=== PATIENT | female | born 1980 | race African-American/Black ===

== ENCOUNTER 2017-12-18 14:24 | Emergency (ER) | payer BC ==
[~2017-12-18] VITALS: Ht 162.6 cm; Wt 59.0 kg
--- NOTE | ~2017-12-18 | EKG ---
[place] [address] [facility] [place] [address] ELECTROCARDIOGRAM REPORT Name: THURMANMIKAEL Room #: JOSE Rogers#: [id number] Admission: 12/18/17 Attend Phys: Discharge: 12/18/17 Date of : 76 Report #: [id number] THIS REPORT FOR: //name// [facility] ED Test Date: 2017-12-18 Test Time: 14:45:09 Pat Name: MIKAEL THURMAN Department: Room: Gender: F [employer]: [facility] : 1980 Requested By: Jethro Brown Order Number: [id number] MD: Weston Matthew Measurements Intervals [place] Rate: 75 P: 57 NC: 147 QRS: 49 QRSD: 118 T: -1 QT: 390 QTc: 436 Interpretive Statements Sinus rhythm Probable left atrial enlargement Nonspecific intraventricular conduction delay Compared to ECG 04/12/2015 12:45:09 Intraventricular conduction delay now present T-wave abnormality no longer present Electronically Signed On 12-18-2017 22:28:35 CDT by Weston Matthew [email or web address] <ELECTRONICALLY SIGNED> By: Weston Matthew MD 12/18/17 [id number] 1445 Weston Matthew MD /[email or web address]
[~2017-12-18 14:24] MED LIST: ANTIVERT25 MG PO; BENADRYL25 MG PO; BIRTH CONTROL; HYDROCHLOROTHIA25 M2 PO; LISINOPRIL10 MG PO; MACROBID 100 M100 M1 PO; PEPCID40 MG PO; PREDNISONE 5 MG5 M1 PO
[2017-12-18 15:22] LABS: ABSOLUTE NEUTROPHILS 2.9 thou/uL (1.4-8.2); BASOPHILS 0.8 % (0.0-2.0); EOSINOPHILS 1.5 % (0.0-3.0); HEMATOCRIT 40.2 % (37.0-47.0); HEMOGLOBIN 13.5 gm/dL (12.0-15.0); LYMPHOCYTES 34.9 % (24.0-44.0); MCH 28.3 pg (26.0-34.0); MCHC 33.5 g/dL (28.0-37.0); MCV 84.4 fL (80.0-100.0); MONOCYTES 6.7 % (1.0-8.0); PLATELET COUNT 325 thou/uL (150-400); POLYS 56.1 % (36.0-66.0); RBC 4.77 mil/uL (4.20-5.00); WBC 5.1 thou/uL (4.0-11.0)
[2017-12-18 15:30] LABS: ANION GAP 7 mmol/L (7-16); BUN 8 mg/dL (7-18); CALCIUM 9.2 mg/dL (8.5-10.1); CHLORIDE 104 mmol/L (98-107); CO2 28 mmol/L (21-32); GLUCOSE 105 mg/dL (74-106); POTASSIUM 3.4 mmol/L (3.5-5.1); SODIUM 139 mmol/L (136-145)
[2017-12-18 15:39] LABS: ALBUMIN 3.8 g/dL (3.4-5.0); SGOT 17 U/L (15-37); SGPT 18 U/L (30-65); TOTAL BILIRUBIN 0.5 mg/dL (<0.1-1.0); TOTAL PROTEIN 7.9 g/dL (6.4-8.2); TROPONIN-I < 0.04 ng/mL (<0.06)
[2017-12-18 16:11] VITALS: BP 136/76
== END 2017-12-18 16:35 | disposition home or self-care (01) ==
LOC: ER 14:24
PROVIDERS: Emergency Medicine
DX: I10 Essential (primary) hypertension (principal); J00 Acute nasopharyngitis [common cold]; R42 Dizziness and giddiness; R94.31 Abnormal electrocardiogram [ECG] [EKG]; Z88.4 Allergy status to anesthetic agent